=== PATIENT | female | born 1990 | race Hispanic/Latino ===

== ENCOUNTER 2018-08-01 19:10 | Emergency (ER) | payer OTHER, SELFPAY ==
[2018-08-01 19:54] LABS: Absolute Neutrophil 7.7 K/uL (1.8-8.0); Basophils % 1.1 % (0-1.3); Eosinophils % 2.1 % (0-4.4); Lymphocytes % 24.8 % (15.3-44.8); MCH 22.7 pg (27.0-35.0); MCV 71.6 fL (80-100); MPV 8.9 fL (7.6-11.3); Monocytes % 8.3 % (3.3-12.3); RBC Red Blood Cell Count 5.17 M/uL (3.86-4.86)
[2018-08-01 20:12] LABS: BUN Blood Urea Nitrogen 11 mg/dL (7-18); Bicarbonate 24 mmol/L (21-32); Glucose Level 102 mg/dL (74-106); HCG, Quantitative 2 mIU/mL (1-3); Potassium 3.6 mmol/L (3.5-5.1); Sodium Level 138 mmol/L (136-145)
[2018-08-01 20:13] LABS: Urine Blood 3+ (NEG); Urine Glucose NEGATIVE (NEG); Urine Protein NEGATIVE (NEG); Urine pH 6.5 (5.0-7.0)
--- NOTE | 2018-08-01 20:45 | EDPHYS ---
Physician Documentation [facility] Name: Odalis Oneill Age: 28 yrs Sex: Female : 1990 Arrival Date: 08/01/2018 Time: 19:12 Bed 20 Private MD: ED Physician Chuck Araujo HPI: 08/01 20:38 This 28 yrs old Female presents to ER via Ambulatory with complaints of tw4 Vaginal Bleeding, + Preg <12wks. 20:38 The patient presents to the emergency department with vaginal bleeding, described as tw4 spotting. The estimated gestational age is 5 weeks. course: care: none. The patient has not experienced similar symptoms in the past. SKINNER PELTS: 19:18 LMP 06/24/2018 aj1 20:38 1, Living 0 tw4 Historical: - Allergies: 19:18 No Known Allergies; aj1 - Home Meds: 19:18 None [Active]; aj1 - PMHx: 19:18 None; aj1 - PSHx: 19:18 Cholecystectomy; aj1 - Immunization history:: Flu vaccine is up to date. - Social history:: Smoking status: Patient/guardian denies using tobacco. - Ebola Screening: : Patient denies travel to an Ebola-affected area in the 21 days before illness onset. ROS: 20:38 Constitutional: Negative for fever, chills, and weight loss, Eyes: Negative for injury, tw4 pain, redness, and discharge, Cardiovascular: Negative for chest pain, palpitations, and edema, Respiratory: Negative for shortness of breath, cough, wheezing, and pleuritic chest pain, Abdomen/GI: Negative for abdominal pain, nausea, vomiting, diarrhea, and constipation. 20:38 : Positive for vaginal bleeding, Negative for injury or acute deformity, urinary symptoms, small amounts, pelvic pain, flank pain, burning with urination, difficulty urinating, bladder incontinence, foul smelling urine, vaginal discharge, vaginal itching, missed period. Exam: 20:38 Constitutional: This is a well developed, well nourished patient who is awake, alert, tw4 and in no acute distress. Head/Face: Normocephalic, atraumatic. Chest/axilla: Normal chest wall appearance and motion. Nontender with no deformity. No lesions are appreciated. Cardiovascular: Regular rate and rhythm with a normal S1 and S2. No gallops, murmurs, or rubs. Normal PMI, no JVD. No pulse deficits. Respiratory: Lungs have equal breath sounds bilaterally, clear to auscultation and percussion. No rales, rhonchi or wheezes noted. No increased work of breathing, no retractions or nasal flaring. Abdomen/GI: Soft, non-tender, with normal bowel sounds. No distension or tympany. No guarding or rebound. No evidence of tenderness throughout. Back: No spinal tenderness. No costovertebral tenderness. Full range of motion. MS/ Extremity: Pulses equal, no cyanosis. Neurovascular intact. Full, normal range of motion. Neuro: Awake and alert, GCS 15, oriented to person, place, time, and situation. Cranial nerves II-XII grossly intact. Motor strength 5/5 in all extremities. Sensory grossly intact. Cerebellar exam normal. Normal gait. 20:38 : Pelvic Exam: the exam is deferred. tw4 Vital Signs: 19:18 Pulse 92; Resp 18; Temp 98.8; Pulse Ox 99% on R/A; Weight 102.06 kg (R); Height 5 ft. 5 aj1 in. (165.10 cm) (R); Pain 8/10; 19:18 BP 126 / 83; aj1 20:07 BP 115 / 71; Pulse 85; Resp 18; Pulse Ox 98% on R/A; ak1 19:18 Body Mass Index 37.44 (102.06 kg, 165.10 cm) aj1 MDM: 19:20 Patient medically screened. tw4 20:38 Differential diagnosis: [place] bec[place], delivery of , Data reviewed: vital signs, tw4 nurses notes. Test interpretation: by ED physician or midlevel provider:. Counseling: I had a detailed discussion with the patient and/or guardian regarding: the historical points, exam findings, and any diagnostic results supporting the discharge/admit diagnosis. Special discussion: I discussed with the patient/guardian in detail that at this point there is no indication for admission to the hospital. It is understood, however, that if the symptoms persist or worsen the patient needs to return immediately for re-evaluation. ED course: Pt's HCG negative for . 08/01 19:21 Order name: Quantitative Hcg tw4 08/01 19:21 Order name: Abo/rh Typing tw 08/01 19:21 Order name: Basic Metabolic Panel rust 08/01 19:21 Order name: CBC with Diff tw 08/01 19:34 Order name: Urine Dipstick--Ancillary (enter results) em1 08/01 19:34 Order name: Urine --Ancillary (enter results) [facility] 08/01 19:21 Order name: US OB Limited tw4 08/01 19:56 Order name: CBC with Automated Diff EDVT 08/01 20:12 Order name: Basic Metabolic Panel EDVT 08/01 20:12 Order name: HCG, Quantitative; Complete Time: 20:27 EDVT 08/01 20:14 Order name: Urine --Ancillary [facility] 08/01 20:14 Order name: Urine Dipstick-Ancillary [facility] 08/01 20:17 Order name: ABO/RH typing [facility] 08/01 20:22 Order name: ABO/RH no charge EDVT 08/01 19:21 Order name: Urine Test (obtain specimen); Complete Time: 19:33 tw4 08/01 19:21 Order name: IV Saline Lock; Complete Time: 19:43 tw4 08/01 19:21 Order name: Labs collected and sent; Complete Time: 19:43 tw4 08/01 19:21 Order name: NPO; Complete Time: 19:22 tw4 08/01 19:21 Order name: Urine Dipstick-Ancillary (obtain specimen); Complete Time: 19:33 tw4 Administered Medications: No medications were administered Point of Care Testing: Urine : 20:07 hCG Reading: Negative; Control Reading: Positive; ak1 Disposition: 08/01/18 20:44 Discharged to Home. Impression: Other abnormal uterine and vaginal bleeding. - Condition is Stable. - Discharge Instructions: Abnormal Uterine Bleeding. - Work release form, Medication Reconciliation Form, Thank You Letter, Antibiotic Education, Prescription Opioid Use form. - Follow up: Private Physician; When: Upon discharge from the Emergency Department; Reason: If symptoms return, Recheck today's complaints, Continuance of care. - Problem is new. - Symptoms have improved. Signatures: [facility] Becky Avila RN RN aj1 Nyasia Nesbitt RN RN ak1 Chuck Araujo MD MD tw4 Corrections: (The following items were deleted from the chart) 21:08 20:44 08/01/2018 20:44 Discharged to Home. Impression: Other abnormal uterine and ak1 vaginal bleeding. Condition is Stable. Forms are Medication Reconciliation Form, Thank You Letter, Antibiotic Education, Prescription Opioid Use. Follow up: Private Physician; When: Upon discharge from the Emergency Department; Reason: If symptoms return, Recheck today's complaints, Continuance of care. Problem is new. Symptoms have improved. tw4
--- NOTE | 2018-08-01 20:45 | ER ---
Nurse's Notes [facility] Name: Odalis Oneill Age: 28 yrs Sex: Female : 1990 Arrival Date: 08/01/2018 Time: 19:12 Bed 20 Private MD: Diagnosis: Other abnormal uterine and vaginal bleeding Presentation: 08/01 19:17 Presenting complaint: Patient states: "I started spotting yesterday, and then today I aj1 was spotting again, and its progressed through the day, now its like a period and I've been cramping" Patient reports that she is currently 5 weeks . Patient is seeing Dr. Miner for care. Transition of care: patient was not received from another setting of care. Onset of symptoms was August 01, 2018. Risk Assessment: Do you want to hurt yourself or someone else? Patient reports no desire to harm self or others. Initial Sepsis Screen: Does the patient meet any 2 criteria? No. Patient's initial sepsis screen is negative. Does the patient have a suspected source of infection? No. Patient's initial sepsis screen is negative. Care prior to arrival: None. 19:17 Method Of Arrival: Ambulatory aj1 19:17 Acuity: SAROJ 3 aj1 Triage Assessment: 19:18 General: Appears in no apparent distress. comfortable, Behavior is calm, cooperative, aj1 appropriate for age. Pain: Complains of pain in right lower quadrant and left lower quadrant Pain currently is 3 out of 10 on a pain scale. Quality of pain is described as crampy. Neuro: Level of Consciousness is awake, alert, obeys commands. Cardiovascular: Patient's skin is warm and dry. Respiratory: Airway is patent Respiratory effort is even, unlabored, Respiratory pattern is regular, symmetrical. GI: Reports cramping. : Reports vaginal bleeding that is bright red, moderate flow. 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 - Social history:: Smoking status: Patient/guardian denies using tobacco. - Ebola Screening: : Patient denies travel to an Ebola-affected area in the 21 days before illness onset. Screenin:07 Abuse screen: Denies threats or abuse. Denies injuries from another. Nutritional ak1 screening: No deficits noted. Tuberculosis screening: No symptoms or risk factors identified. Fall Risk None identified. Assessment: 19:45 Obstetrical Assessment: General assessment: awake and alert, skin warm and dry, Rupture ak1 of membranes not noted. Patient reports vaginal spotting X1 day with increased bleeding today. . General: Appears in no apparent distress. Behavior is calm, cooperative. 19:45 Pain: Denies pain. Neuro: No deficits noted. Cardiovascular: No deficits noted. ak1 Respiratory: No deficits noted. GI: No signs and/or symptoms were reported involving the gastrointestinal system. : Reports vaginal bleeding that is bright red, light flow, spotty, since yesterday. pt stated she took 4 home test over the past 5 weeks that were positive. pt stated she has not seen ASSOCIATE CURATOR for this . EENT: No signs and/or symptoms were reported regarding the EENT system. Derm: No signs and/or symptoms reported regarding the dermatologic system. Musculoskeletal: No signs and/or symptoms reported regarding the musculoskeletal system. 20:59 Reassessment: Patient appears in no apparent distress at this time. Patient is alert, ak1 oriented x 3, equal unlabored respirations, skin warm/dry/pink. Vital Signs: 19:18 Pulse 92; Resp 18; Temp 98.8; Pulse Ox 99% on R/A; Weight 102.06 kg (R); Height 5 ft. 5 aj1 in. (165.10 cm) (R); Pain 8/10; 19:18 BP 126 / 83; aj1 20:07 BP 115 / 71; Pulse 85; Resp 18; Pulse Ox 98% on R/A; ak1 19:18 Body Mass Index 37.44 (102.06 kg, 165.10 cm) aj1 Vitals: 20:58 Heart Tones N/A pt not . . ak1 ED Course: 19:12 Patient arrived in ED. es 19:18 Triage completed. aj1 19:18 Nyasia Nesbitt, RN is Primary Nurse. ak1 19:18 Arm band placed on Patient placed in an exam room. aj1 19:20 Chuck Araujo MD is Attending Physician. tw4 19:42 Inserted saline lock: 20 gauge in right antecubital area, using aseptic technique. ar5 Blood collected. 19:43 Urine --Ancillary (enter results) Sent. ar5 19:43 Quantitative Hcg Sent. ar5 19:43 Abo/rh Typing Sent. ar5 19:43 Basic Metabolic Panel Sent. ar5 19:43 CBC with Diff Sent. ar5 19:43 Urine Dipstick--Ancillary (enter results) Sent. ar5 20:07 Patient has correct armband on for positive identification. Bed in low position. Call ak1 light in reach. Side rails up X 1. Pulse ox on. NIBP on. Door closed. Lights dimmed. Warm blanket given. 20:58 No provider procedures requiring assistance completed. IV discontinued, intact, ak1 bleeding controlled, No redness/swelling at site. Administered Medications: No medications were administered Point of Care Testing: Urine : 20:07 hCG Reading: Negative; Control Reading: Positive; ak1 Outcome: 20:44 Discharge ordered by . tw4 20:58 Discharged to home ambulatory. ak1 20:58 Condition: good 20:58 Discharge instructions given to patient, Instructed on discharge instructions, follow up and referral plans. Demonstrated understanding of instructions, follow-up care. 21:08 Patient left the ED. ak1 Signatures: Becky Avila, RN RN aj1 Tierra Galeana Amber RN RN ak1 Chuck Araujo MD MD 4 Tiffanie Duenas ar5 Corrections: (The following items were deleted from the chart) 20:07 19:45 BP 115 / 71; Pulse 85bpm; Resp 18bpm; Pulse Ox 98% RA; ak1 ak1
== END 2018-08-01 21:08 | disposition home or self-care (01) ==
LOC: ER 19:10
DX: N93.8 Other specified abnormal uterine and vaginal bleeding (principal)
CPT/HCPCS: 36415; 80048; 81003; 81025; 84702; 85025; 86900; 86901; 99284

== ENCOUNTER 2019-05-08 15:02 | Emergency (ER) | payer SELFPAY ==
[2019-05-08 15:37] LABS: Absolute Lymphocytes (CBC) 1.6 K/uL (0.7-4.9); Basophils % 0.5 % (0-1.3); Hematocrit 36.3 % (36.0-45.0); Lymphocytes % 11.1 % (15.3-44.8); MPV 8.7 fL (7.6-11.3); RBC Red Blood Cell Count 5.17 M/uL (3.86-4.86)
[2019-05-08] MEDS ORDERED: NA CHLORIDE 0.9% 1,000 ML ONE (15:59)
[2019-05-08] MEDS ORDERED: LORazepam 2 MG/ML VIAL ONE (15:59)
[2019-05-08 16:00] LABS: Urine Blood NEGATIVE (NEG); Urine Glucose NEGATIVE (NEG); Urine Protein NEGATIVE (NEG); Urine Specific Gravity 1.005 (1.005-1.030); Urine pH 5.5 (5.0-7.0)
[2019-05-08 16:07] LABS: ALT/SGPT 28 U/L (12-78); AST/SGOT 16 U/L (15-37); Alkaline Phosphatase 121 U/L (45-117); BUN Blood Urea Nitrogen 13 mg/dL (7-18); Bicarbonate 19 mmol/L (21-32); Bilirubin Direct < 0.1 mg/dL (0-0.2); Bilirubin Total 0.4 mg/dL (0.2-1.0); Glucose Level 154 mg/dL (74-106); Protein, Total 8.4 g/dL (6.4-8.2); Sodium Level 140 mmol/L (136-145)
[2019-05-08 16:09] LABS: Protime INR 1.13
[2019-05-08 16:32] LABS: T4,Total > 24.0 ug/dL (4.8-13.9)
[2019-05-08 16:44] LABS: Barbiturates NEGATIVE (NEGATIVE); Benzodiazepines NEGATIVE (NEGATIVE); Cocaine NEGATIVE (NEGATIVE); METHAMPHETAM NEGATIVE (NEGATIVE); Methadone NEGATIVE (NEGATIVE); Opiates NEGATIVE (NEGATIVE); Phencyclidine NEGATIVE (NEGATIVE); THC Cannibis NEGATIVE (NEGATIVE)
--- NOTE | 2019-05-08 18:15 | ER ---
Nurse's Notes [facility] Name: Odalis Oneill Age: 29 yrs Sex: Female : 1990 Arrival Date: 05/08/2019 Time: 15:04 Bed 6 Private MD: Diagnosis: Poisoning by other agents primarily affecting the cardiovascular system, intentional [id number] levothyroxine Presentation: 05/08 15:05 Presenting complaint: EMS states: PT TOOK UNK NUMBER OF 75MCG LEVOTHYROXINE AND UNKNOWN iw AMOUNT OF TIME AGO A DRAMATIC GESTURE TO CAUSE TO RETURN. Transition of care: patient was not received from another setting of care. Onset of symptoms is unknown. Risk Assessment: Do you want to hurt yourself or someone else? Patient reports no desire to harm self or others. Initial Sepsis Screen: Does the patient meet any 2 criteria? HR > 90 bpm. No. Patient's initial sepsis screen is negative. Does the patient have a suspected source of infection? No. Patient's initial sepsis screen is negative. Care prior to arrival: None. 15:05 Method Of Arrival: EMS: [facility] iw 15:05 Acuity: SAROJ 2 iw Triage Assessment: 15:08 General: Appears in no apparent distress. comfortable, obese, Behavior is appropriate iw for age, agitated, anxious, crying. Pain: Denies pain. EENT: No deficits noted. Neuro: Level of Consciousness is awake, alert, obeys commands, Oriented to person, place, time, situation, Appropriate for age. Cardiovascular: No deficits noted. Respiratory: No deficits noted. GI: No signs and/or symptoms were reported involving the gastrointestinal system. : No signs and/or symptoms were reported regarding the genitourinary system. Derm: No deficits noted. Musculoskeletal: No deficits noted. 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 - Social history:: Smoking status: unknown Patient/guardian denies using alcohol, street drugs, The patient lives with family. - Ebola Screening: : No symptoms or risks identified at this time. - Family history:: not pertinent. Screenin:09 Abuse screen: Denies threats or abuse. Denies injuries from another. Nutritional iw screening: No deficits noted. Tuberculosis screening: No symptoms or risk factors identified. 19:20 Fall Risk None identified. ak1 Assessment: 15:05 General: SEE TRIAGE NOTE. bp 16:09 Reassessment: PT DENIES ACTUAL INGESTION, STATES IT WAS A VERBAL PLOY FOR bp RECONCILIATION WITH HER . 17:02 Reassessment: Patient and/or family updated on plan of care and expected duration. Pain bp level reassessed. Patient is alert, oriented x 3, equal unlabored respirations, skin warm/dry/pink. ALL CURRENT ORDERS COMPLETED, RESULTS PENDING FOR DISPO. 18:32 Reassessment: REPORT TO AMBER LARSON RN AT [facility]. TRANSPORT PENDING. bp Vital Signs: 15:08 BP 122 / 75; Pulse 111; Resp 24; Temp 98; Pulse Ox 98% ; Weight 90.72 kg; iw 16:04 BP 105 / 67; Pulse 91; Resp 16; Pulse Ox 97% ; bp 17:02 BP 107 / 62; Pulse 88; Resp 16; Pulse Ox 99% ; bp 18:00 BP 107 / 62; Pulse 100; Resp 14; Pulse Ox 98% ; bp ED Course: 15:04 Patient arrived in ED. iw 15:05 Teja Duran MD is Attending Physician. ma2 15:07 Triage completed. iw 15:08 Arm band placed on. iw 15:09 Patient has correct armband on for positive identification. Bed in low position. Call iw light in reach. Side rails up X2. 15:11 Corrie Colorado, KAMERON is Primary Nurse. iw 15:25 Missed attempt(s): 22 gauge in right forearm. Bleeding controlled, band aid applied, aa5 catheter tip intact. 15:30 Initial lab(s) drawn, by me, sent to lab. Inserted saline lock: 20 gauge in right aa5 forearm, using aseptic technique. Blood collected. 19:20 No provider procedures requiring assistance completed. Patient transferred, IV remains ak1 in place. Administered Medications: 16:03 Drug: Ativan 1 mg Route: IVP; Site: right forearm; bp 18:25 Follow up: Response: No adverse reaction bp 16:03 Drug: NS 0.9% 1000 ml Route: IV; Rate: 1 bolus; Site: right forearm; bp Outcome: 18:08 ER care complete, transfer ordered by . marcia 19:20 Transferred by ground EMS to [facility], Transfer form completed. X-rays sent ak1 w/ patient. 19:20 Condition: stable 19:20 Instructed on the need for transfer. 19:25 Patient left the ED. ak1 Signatures: Corrie Colorado RN RN iw Andreia Concepcion RN RN aa5 Nyasia Nesbitt RN RN ak1 Amaury Cosme RN RN bp Alzahri, Mohammad, MD MD ma2
--- NOTE | 2019-05-08 18:16 | EDPHYS ---
Physician Documentation [facility] Name: Odalis Oneill Age: 29 yrs Sex: Female : 1990 Arrival Date: 05/08/2019 Time: 15:04 Bed 6 Private MD: ED Physician Teja Duran HPI: 05/08 18:03 This 29 yrs old Female presents to ER via EMS with complaints of Overdose. ma2 18:03 The patient presents to the emergency department overdosed levothyroxine 75 gemma, ma2 handful amount to get her attention, she denies si . Context: Time: just prior to arrival. Associated signs and symptoms: Pertinent negatives: burning of skin, diaphoresis, diarrhea, tearfulness, vomiting. Severity of symptoms: At their worst the symptoms were moderate in the emergency department the symptoms are unchanged. The patient has not experienced similar symptoms in the past. 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 - Social history:: Smoking status: unknown Patient/guardian denies using alcohol, street drugs, The patient lives with family. - Ebola Screening: : No symptoms or risks identified at this time. - Family history:: not pertinent. ROS: 18:03 Constitutional: Negative for fever, chills, and weight loss. ma2 18:03 All other systems are negative. Exam: 18:03 Constitutional: This is a well developed, well nourished patient who is awake, alert, ma2 and in no acute distress. Head/Face: Normocephalic, atraumatic. Eyes: Pupils equal round and reactive to light, extra-ocular motions intact. Lids and lashes normal. Conjunctiva and sclera are non-icteric and not injected. Cornea within normal limits. Periorbital areas with no swelling, redness, or edema. ENT: Nares patent. No nasal discharge, no septal abnormalities noted. Tympanic membranes are normal and external auditory canals are clear. Oropharynx with no redness, swelling, or masses, exudates, or evidence of obstruction, uvula midline. Mucous membranes moist. Neck: Trachea midline, no thyromegaly or masses palpated, and no cervical lymphadenopathy. Supple, full range of motion without nuchal rigidity, or vertebral point tenderness. No Meningismus. Chest/axilla: Normal chest wall appearance and motion. Nontender with no deformity. No lesions are appreciated. Cardiovascular: Regular rate and rhythm with a normal S1 and S2. No gallops, murmurs, or rubs. Normal PMI, no JVD. No pulse deficits. Respiratory: Lungs have equal breath sounds bilaterally, clear to auscultation and percussion. No rales, rhonchi or wheezes noted. No increased work of breathing, no retractions or nasal flaring. Abdomen/GI: Soft, non-tender, with normal bowel sounds. No distension or tympany. No guarding or rebound. No evidence of tenderness throughout. Back: No spinal tenderness. No costovertebral tenderness. Full range of motion. Skin: Warm, dry with normal turgor. Normal color with no rashes, no lesions, and no evidence of cellulitis. MS/ Extremity: Pulses equal, no cyanosis. Neurovascular intact. Full, normal range of motion. Neuro: Awake and alert, GCS 15, oriented to person, place, time, and situation. Cranial nerves II-XII grossly intact. Motor strength 5/5 in all extremities. Sensory grossly intact. Cerebellar exam normal. Normal gait. Psych: Awake, alert, with orientation to person, place and time. Behavior, mood, and affect are within normal limits. Vital Signs: 15:08 BP 122 / 75; Pulse 111; Resp 24; Temp 98; Pulse Ox 98% ; Weight 90.72 kg; iw 16:04 BP 105 / 67; Pulse 91; Resp 16; Pulse Ox 97% ; bp 17:02 BP 107 / 62; Pulse 88; Resp 16; Pulse Ox 99% ; bp 18:00 BP 107 / 62; Pulse 100; Resp 14; Pulse Ox 98% ; bp MDM: 15:05 Patient medically screened. ma2 18:03 Differential diagnosis: polypharmacy, over medication, hypoglycemia. Data reviewed: id2 vital signs, nurses notes, EMS record. Counseling: I had a detailed discussion with the patient and/or guardian regarding: the historical points, exam findings, and any diagnostic results supporting the discharge/admit diagnosis, the presence of at least one elevated blood pressure reading (>120/80) during this emergency department visit, the need to transfer to another facility. ED course: patient has elevated t4 to 24, need to be observed, discussed with dr. anderson who advised that there is no endocrinology service for consult and will transfer for higher level of care, accepted by dr. Self. 05/08 15:05 Order name: Acetaminophen; Complete Time: 16:[facility] 05/08 15:05 Order name: Basic Metabolic Panel; Complete Time: 16:44 [facility] 05/08 15:05 Order name: CBC with Diff; Complete Time: 15:58 [facility] 05/08 15:05 Order name: ETOH Level; Complete Time: 16:44 [facility] 05/08 15:05 Order name: Hepatic Function; Complete Time: 16:[facility] 05/08 15:05 Order name: PT-INR; Complete Time: 16:44 [facility] 05/08 15:05 Order name: Ptt, Activated; Complete Time: 16:44 [facility] 05/08 15:05 Order name: Salicylate; Complete Time: 16:44 [facility] 05/08 15:05 Order name: Urine Drug Screen; Complete Time: 17:23 [facility] 05/08 15:32 Order name: Thyroid Stimulat Hormone; Complete Time: 16:44 [facility] 05/08 15:32 Order name: T4,Total; Complete Time: 16:44 [facility] 05/08 15:32 Order name: T4 Free; Complete Time: 16:44 [facility] 05/08 15:34 Order name: LAB Add On 05/08 15:36 Order name: Urine Dipstick--Ancillary (enter results); Complete Time: 16:44 05/08 15:05 Order name: EKG - Nurse/Tech; Complete Time: 16:38 [facility] 05/08 15:05 Order name: IV Saline Lock; Complete Time: 15:35 [facility] 05/08 15:05 Order name: Labs collected and sent; Complete Time: 15:35 [facility] 05/08 15:05 Order name: Urine Dipstick-Ancillary (obtain specimen); Complete Time: 15:35 [facility] 05/08 15:50 Order name: Test, Serum; Complete Time: 16:44 eb Administered Medications: 16:03 Drug: Ativan 1 mg Route: IVP; Site: right forearm; bp 18:25 Follow up: Response: No adverse reaction bp 16:03 Drug: NS 0.9% 1000 ml Route: IV; Rate: 1 bolus; Site: right forearm; bp Disposition: 05/08/19 18:08 Transfer ordered to [facility]. Diagnosis is Poisoning by other agents primarily affecting the cardiovascular system, intentional self-harm - overdosed levothyroxine . - Reason for transfer: Higher level of care. - Accepting physician is Dr. Prieto. - Condition is Stable. - Problem is new. - Symptoms are unchanged. Signatures: Dispatcher [employer] EDCorrie Meza RN RN Nyasia Rivera RN RN ak1 Amaury Cosme RN RN Teja Mcmanus MD MD ma2 Corrections: (The following items were deleted from the chart) 15:35 15:05 Urine Test ordered. ma2 aa5 19:25 18:08 05/08/2019 18:08 Transfer ordered to [facility]. ak1 Diagnosis is Poisoning by other agents primarily affecting the cardiovascular system, intentional self-harm - overdosed levothyroxine . Reason for transfer: Higher level of care. Accepting physician is Dr. Prieto. Condition is Stable. Problem is new. Symptoms are unchanged. ma2
[2019-05-08 20:16] VITALS: TEMP 98
[2019-05-08 20:19] VITALS: BP 107/62
[2019-05-08 20:20] VITALS: O2SAT 98
== END 2019-05-08 19:25 | disposition short-term general hospital (02) ==
LOC: ER 15:02
DX: T38.1X2A Poisoning by thyroid hormones and substitutes, intentional self-harm, initial encounter (principal); E03.9 Hypothyroidism, unspecified
CPT/HCPCS: 36415; 80048; 80076; 80307; 80320; 80329; 81003; 84436; 84439; 84443; 84703; 85025; 85610; 85730; 96374; 99285; J7030